=== PATIENT | female | born 1995 | race Asian ===

== ENCOUNTER 2018-10-11 02:56 | Emergency (ER) | payer BC ==
[~2018-10-11] VITALS: Ht 149.9 cm; Wt 66.0 kg
[2018-10-11 03:07] VITALS: Ht 149.9 cm; Wt 66.0 kg
[2018-10-11 03:59] VITALS: BP 124/62
== END 2018-10-11 03:59 | disposition home or self-care (01) ==
LOC: ED 02:56
DX: N39.0 Urinary tract infection, site not specified (principal)